=== PATIENT | male | born 1955 | race Caucasian/White ===

== ENCOUNTER 2018-10-06 06:03 | Inpatient (IN) | payer OTHER ==
[2018-09-28 11:47] VITALS: BMI 30.7
[2018-10-05] MEDS: Lactated Ringer's 1,000 ML IV SCH (23:30)
--- NOTE | 2018-10-06 06:52 | CP.PCM.HP ---
History of Present Illness - History of Present Illness History of Present Illness: PMD: Prinz Lesley Orthopedic: Dr Gomez Chief Complaint: Left hip pain The Patient was seen and examined in the [facility] HPI: 63 years old male with hx of HTN, HLD, left Meniscus tear surgery and Osteoarthritis of the left hip. He comes with painful left hip that has failed conservative treatment of Physical therapy, Intraarticular injections and analgesics. He has decided on surgical management for the left hip Osteoarthrit is. PMH: HTN; HLD; Osteoarthritis of the left Hip and knees; Thalassemia Minor, Abnormal EKG PSH: Bowel surgery as an ; Left knee meniscus tear surgery; Right eye surgery SH: Occasional Alcohol; Never smoked; No illegal drug use; Works as a Registered Nurse; Live with family FH: States: No known family hx Allergies: NKDA Medication: Reviewed Present on Admission - Present on Admission Any Indicators Present on Admission: No History of DVT/PE: No History of Uncontrolled Diabetes: No Urinary Catheter: No Decubitus Ulcer Present: No Review of Systems - Constitutional Constitutional: absent: Chills, Fatigue, Fever, Headache, Lethargy - EENT Eyes: Requires Corrective Lenses. absent: Blurred Vision, Diplopia, Other Visual Disturbances Ears: absent: Ear Discharge, Tinnitus Nose/Mouth/Throat: absent: Epistaxis, Nasal Congestion, Sinus Pain, Sinus Pressure - Cardiovascular Cardiovascular: absent: Chest Pain, Dyspnea, Edema - Respiratory Respiratory: absent: Cough, Dyspnea, Wheezing, Stridor - Gastrointestinal Gastrointestinal: absent: Constipation, Diarrhea, Nausea, Vomiting - Genitourinary Genitourinary: absent: Dysuria, Flank Pain, Urinary Frequency - Musculoskeletal Musculoskeletal: Arthralgias. absent: Back Pain Additional comments: Left hip pains - Integumentary Integumentary: absent: Pruritus, Rash, Skin Ulcer, Sores, Striae, Swelling - Neurological Neurological: absent: Confusion, Focal Weakness, Syncope, Tingling, Weakness - Psychiatric Psychiatric: absent: Anxiety, Depression, Panic Attacks - Endocrine Endocrine: absent: Palpitations, Polydipsia, Polyphagia, Polyuria - Hematologic/Lymphatic Hematologic: absent: Easy Bleeding, Easy Bruising Past Patient History - Past Medical History & Family History Past Medical History?: Yes - Past Social History Smoking Status: Never Smoked Chewing Tobacco Use: No Cigar Use: No Alcohol: Occasional Drugs: Denies, Inhalants Home Situation {Lives}: With Family - CARDIAC Hx Cardiac Disorders: Yes Hx Hypercholesterolemia: Yes Hx Hypertension: Yes - PULMONARY Hx Respiratory Disorders: No - NEUROLOGICAL Hx Neurological Disorder: No - HEENT Hx HEENT Problems: No - RENAL Hx Chronic Kidney Disease: No - ENDOCRINE/METABOLIC Hx Endocrine Disorders: No - HEMATOLOGICAL/ONCOLOGICAL Hx Blood Disorders: Yes Other/Comment: Thalassemia - INTEGUMENTARY Hx Dermatological Problems: No - MUSCULOSKELETAL/RHEUMATOLOGICAL Hx Musculoskeletal Disorders: Yes Hx Osteoarthritis: Yes (hips,knees) - GASTROINTESTINAL Hx Gastrointestinal Disorders: No - GENITOURINARY/GYNECOLOGICAL Hx Genitourinary Disorders: No - PSYCHIATRIC Hx Psychophysiologic Disorder: No - SURGICAL HISTORY Hx Surgeries: Yes Hx Arthroscopy: Yes (left knee meniscus -2016) Other/Comment: bowel surgery--child - ANESTHESIA Hx Anesthesia: Yes Hx Anesthesia Reactions: Yes (nausea) Meds Allergies/Adverse Reactions: Allergies Allergy/AdvReac Type Severity Reaction Status Date / Time No Known Allergies Allergy Verified 10/06/18 07:29 Physical Exam - Constitutional Appears: No Acute Distress - Head Exam Head Exam: ATRAUMATIC, NORMAL INSPECTION, NORMOCEPHALIC - Eye Exam Eye Exam: EOMI, Normal appearance Pupil Exam: NORMAL ACCOMODATION, PERRL - ENT Exam ENT Exam: Mucous Membranes Moist, Normal Exam - Neck Exam Neck exam: Positive for: Full Rom, Normal Inspection - Respiratory Exam Respiratory Exam: Clear to Auscultation Bilateral. absent: Rales, Rhonchi, Wheezes - Cardiovascular Exam Cardiovascular Exam: REGULAR RHYTHM, RRR, +S1, +S2. absent: Gallop - GI/Abdominal Exam GI & Abdominal Exam: Normal Bowel Sounds, Soft. absent: Mass, Organomegaly, Tenderness - Rectal Exam Rectal Exam: Deferred - Extremities Exam Extremities exam: Positive for: full ROM, normal inspection - Back Exam Back exam: NORMAL INSPECTION. absent: CVA tenderness (L), CVA tenderness (R) - Neurological Exam Neurological exam: Alert, CN II-XII Intact, Oriented x3, Reflexes Normal - Psychiatric Exam Psychiatric exam: Normal Affect, Normal Mood - Skin Skin Exam: Intact, Normal Color, Warm Assessment & Plan - Assessment and Plan (Free Text) Plan: 63 years old male with hx of HTN, HLD, left Meniscus tear surgery and Osteoarthritis of the left hip. He comes with painful left hip that has failed conservative treatment of Physical therapy, Intraarticular injections and analgesics. He has decided on surgical management for the left hip Osteoarthritis. #. Osteoarthritis of the left hip - Consult Dr Gomez orthopedist - Orthopedic management - Pain management - OT/PT #. HTN - Restart after surgery: Losartan 50mg PO daily Amlodapine 5mg PO Daily #. HLD - Lipitor 10mg Post surgery #. DVT Prophylaxis with SCD Anticoagulation therapy starting day after surgery #. Code Status: Full Sridhar Ng MD - Date & Time Date: 10/06/18 Time: 06:52
[2018-10-06] MEDS ORDERED: Lactated Ringer's 1,000 ML IV ONE ×3 (07:00→10:30)
--- NOTE | 2018-10-06 07:11 | CP.PCM.CON ---
History of Present Illness - History of Present Illness History of Present Illness: Orthopedic consultation Dr. Gomez 63M complains of right hip pain failed conservative mgmt and elected for THR. Patient with leg length discrepancy and uses orthotic and heel lift. PMH: HTN, chol, thal minor patient had cardiac cath in 2007 due to abnormal EKG, no CAD no history of DVT, stents, seizure disorder PSH: knee arthroscopy NKDA Review of Systems - Review of Systems All systems: reviewed and no additional remarkable complaints except - Musculoskeletal Musculoskeletal: As Per HPI Past Patient History - Past Medical History & Family History Past Medical History?: Yes Past Family History: Reviewed and not pertinent - Past Social History Smoking Status: Never Smoked - CARDIAC Hx Cardiac Disorders: Yes Hx Hypertension: Yes - PULMONARY Hx Respiratory Disorders: No - NEUROLOGICAL Hx Neurological Disorder: No - HEENT Hx HEENT Problems: No - RENAL Hx Chronic Kidney Disease: No - ENDOCRINE/METABOLIC Hx Endocrine Disorders: No - HEMATOLOGICAL/ONCOLOGICAL Hx Blood Disorders: Yes Other/Comment: thalassemia minor - INTEGUMENTARY Hx Dermatological Problems: No - MUSCULOSKELETAL/RHEUMATOLOGICAL Hx Musculoskeletal Disorders: Yes Hx Osteoarthritis: Yes (hips,knees) - GASTROINTESTINAL Hx Gastrointestinal Disorders: No - GENITOURINARY/GYNECOLOGICAL Hx Genitourinary Disorders: No - PSYCHIATRIC Hx Psychophysiologic Disorder: No - SURGICAL HISTORY Hx Surgeries: Yes Hx Arthroscopy: Yes (left knee meniscus -2016) Other/Comment: bowel surgery--child - ANESTHESIA Hx Anesthesia: Yes Hx Anesthesia Reactions: Yes (nausea) Meds Allergies/Adverse Reactions: Allergies Allergy/AdvReac Type Severity Reaction Status Date / Time No Known Allergies Allergy Verified 09/28/18 11:47 Physical Exam - Neck Exam Neck exam: Positive for: Full Rom, Normal Inspection - Expanded Lower Extremities Exam Right Ankle exam: FULL ROM, NORMAL INSPECTION Neuro vacular tendon exam: no vascular compromise (1in leg length discrepancy) - Neurological Exam Neurological exam: Alert, Oriented x3 - Psychiatric Exam Psychiatric exam: Normal Affect, Normal Mood - Skin Skin Exam: Dry, Intact, Normal Color, Warm Assessment & Plan - Assessment and Plan (Free Text) Assessment: R hip DJD NPO T&C for OR medical clearance on chart, reviewed
[2018-10-06] MEDS ORDERED: EPINEPHrine 1 mg/ml (1:1000) Inj ONE (07:15)
[2018-10-06] MEDS ORDERED: Bacitracin Ointment 30 GM TUBE ONE (07:15)
[2018-10-06] MEDS ORDERED: Tranexamic Acid 1,000 MG in Sodium Chloride 0.9% 100 ML IVPB SCH (07:15)
[2018-10-06] MEDS ORDERED: ceFAZolin IV 1 gm in Dextrose 2 GM/100 ML BAG IVPB ONE (07:15)
[2018-10-06] MEDS ORDERED: Thrombin Topical 5,000 Int Units Spray Kit ONE (07:16)
[2018-10-06] MEDS ORDERED: Bisacodyl 5mg EC Tab PO PRN (07:25)
[2018-10-06] MEDS ORDERED: Sodium Chloride 0.9% 1,000 ML IV SCH (07:30)
[2018-10-06] MEDS ORDERED: Rocuronium 10 mg/ml (5 ml) ONE ×2 (07:30→09:04)
[2018-10-06] MEDS ORDERED: Propofol 10 mg/ml Inj (20 ML) ONE (07:30)
[2018-10-06] MEDS ORDERED: Midazolam 2 MG/2 ML VIAL ONE (07:30)
[2018-10-06] MEDS ORDERED: Morphine 1 mg/ml preservative-free Inj(Duramorph) ONE (07:30)
[2018-10-06] MEDS ORDERED: Etomidate 20 mg/10ml Inj IV ONE (07:31)
[2018-10-06] MEDS ORDERED: Succinylcholine 200 mg/10 ml Inj IV ONE (07:31)
[2018-10-06] MEDS ORDERED: Phenylephrine 10 mg/ml Inj ONE (07:31)
[2018-10-06 07:37] LABS: BASO % 0.9 % (0.0-2.0); EOS # 0.1 K/uL (0.0-0.7); EOS % 2.6 % (0.0-4.0); LYMPH # 1.3 K/uL (1.0-4.3); LYMPH % 24.3 % (20.0-40.0); MEAN CELL VOLUME 89.8 fl (80.0-94.0); MEAN CORPUSCULAR HEMOGLOBIN 29.7 pg (27.0-31.0); MEAN CORPUSCULAR HGB CONC 33.1 g/dL (33.0-37.0); MEAN PLATELET VOLUME 9.2 fl (7.2-11.7); MONO # 0.5 K/uL (0.0-0.8); MONO % 8.6 % (0.0-10.0); NEUT # 3.5 K/uL (1.8-7.0); NEUT % 63.6 % (50.0-75.0); NRBC % 0.1 % (0.0-0.0); RBC 4.72 Mil/uL (4.40-5.90); RED CELL DISTRIBUTION WIDTH 13.5 % (11.5-14.5); WHITE BLOOD COUNT 5.5 K/uL (4.8-10.8)
[2018-10-06] MEDS ORDERED: Trimethobenzamide 200 mg/2 mL Inj IM ONE (07:51)
[2018-10-06] MEDS ORDERED: Sodium Chloride 0.9% 500 ML IV ONE (08:05)
[2018-10-06] MEDS ORDERED: Thrombin Topical 5,000 Int Units Spray Kit TOP ONE (09:10)
[2018-10-06] MEDS ORDERED: Sevoflurane - Inhalation Anesthetic Liq (250 ml) ONE (09:16)
[2018-10-06] MEDS ORDERED: Neostigmine 1:1000 (1 mg/ml) Inj ONE (11:36)
[2018-10-06] MEDS ORDERED: HYDROmorphone 0.5 mg/0.5 ml ISec IVP PRN (12:19)
--- NOTE | 2018-10-06 13:13 | PCM.SURG1 ---
Surgeon's Initial Post Op Note - Surgeon's Notes Surgeon: Jason Wood Heel Fitter Machine: VIANEY Peraza/ Alison Membreno PA-C Type of Anesthesia: General Endo, Spinal Anesthesia Administered By: DR Russell Pre-Operative Diagnosis: Sever o/A L HIp. Leg length inequality R<L Operative Findings: sever hypertrophic O/ A L hip. synovits L nhip0. Leg length inequality R<L Post-Operative Diagnosis: same Operation Performed: L THR. femoral; neck [id number]. arthrotomy/synovectomy. release iliopsoas tendon. autograFTE BONE GRAFT. [employer] Specimen/Specimens Removed: bone / cartilage / bone Estimated Blood Loss: EBL {In ML}: 175 Blood Products Given: N/A Drains Used: No Drains Post-Op Condition: Fair Date of Surgery/Procedure: 10/06/18 Time of Surgery/Procedure: 09:05 (time in room 8:03)
--- NOTE | 2018-10-06 13:59 | RAD ---
PROCEDURE: Left Hip X-ray Radiographs. HISTORY: s/p left hip arhtroplasty COMPARISON: None. FINDINGS: BONES: Satisfactory appearance of components of left OLGA LIDIA. JOINTS: Degenerative changes right hip are moderate-severe. SOFT TISSUES: Normal. OTHER FINDINGS: None. IMPRESSION: Satisfactory postoperative status.
--- NOTE | 2018-10-06 14:03 | RAD ---
Date of service: 10/06/2018 PROCEDURE: Fluoroscopic assistance in excess of 1 hour. HISTORY: LEFT HIP COMPARISON: None TECHNIQUE: Standard protocol for this study/examination. FINDINGS: Total fluoroscopic time (continuous mode) utilized during the procedure 6.4 seconds. Total exam DLP: 0.88 (mGy). IMPRESSION: Submitted images from the current procedure: 4.0
[2018-10-06] MEDS: Lactated Ringer's 1,000 ML IV SCH ×2 (15:28→15:45)
[2018-10-06] MEDS ORDERED: oxyCODONE 5 mg Immediate Release Tab PO PRN (16:26)
[2018-10-06] MEDS: ceFAZolin IV 2 gm in Dextrose 2 GM/50 ML BAG IVPB SCH (17:03)
[2018-10-07] MEDS: ceFAZolin IV 2 gm in Dextrose 2 GM/50 ML BAG IVPB SCH (00:34)
[2018-10-07] MEDS: oxyCODONE 10 mg Immediate Release Tab PO PRN (03:08)
[2018-10-07 06:23] LABS: HEMOGLOBIN 10.9 g/dL (12.0-18.0); MEAN CELL VOLUME 87.5 fl (80.0-94.0); MEAN CORPUSCULAR HEMOGLOBIN 29.8 pg (27.0-31.0); MEAN CORPUSCULAR HGB CONC 34.1 g/dL (33.0-37.0); RBC 3.67 Mil/uL (4.40-5.90); RED CELL DISTRIBUTION WIDTH 13.4 % (11.5-14.5); WHITE BLOOD COUNT 9.7 K/uL (4.8-10.8)
[2018-10-07 06:41] LABS: BLOOD UREA NITROGEN 26 mg/dl (9-20); CALCIUM 8.5 mg/dL (8.4-10.2); GFR NON-AFRICAN AMERICAN > 60
--- NOTE | 2018-10-07 08:09 | CP.PCM.PN ---
Subjective - Date & Time of Evaluation Date of Evaluation: 10/07/18 Time of Evaluation: 08:08 - Subjective Subjective: Patient seen and examined at bedside with Dr. Gomez. Pain is well controlled and minimal this AM. Complaints of urinary retention overnight which is improving, able to void small amounts this AM. Has not seen PT as of yet. Denies CP/SOB/N/V/fever. Objective - Vital Signs/Intake and Output Vital Signs (last 24 hours): Temp Pulse Resp BP Pulse Ox 97.8 F 95 H 19 127/78 98 10/07/18 07:57 10/07/18 07:57 10/07/18 07:57 10/07/18 07:57 10/07/18 07:57 Intake and Output: 10/07/18 10/07/18 06:59 18:59 Output Total 475 Balance -475 - Medications Medications: Current Medications Bisacodyl (Dulcolax) 10 mg PO HS PRN PRN Reason: Constipation Docusate Sodium (Colace) 100 mg PO BID [facility] Last Admin: 10/06/18 17:03 Dose: 100 mg Enoxaparin Sodium (Lovenox) 40 mg SC DAILY [facility]; Protocol Hydromorphone HCl (Dilaudid) 1 mg IVP Q4 PRN PRN Reason: Pain, severe (8-10) Last Admin: 10/07/18 00:22 Dose: 1 mg Lactated Ringer's (Lactated Ringer's) 1,000 mls @ 100 mls/hr IV .Q10H [facility] Last Admin: 10/06/18 15:45 Dose: 50 mls Acetaminophen (Ofirmev) 100 mls @ 400 mls/hr IVPB Q6H [facility]; Protocol Stop: 10/08/18 07:01 Ondansetron HCl (Zofran Inj) 4 mg IVP Q6 PRN PRN Reason: Nausea/Vomiting Oxycodone HCl (Oxycodone Immediate Release Tab) 5 mg PO Q4 PRN PRN Reason: Pain, Mild (1-3) Oxycodone HCl (Oxycodone Immediate Release Tab) 10 mg PO Q4 PRN PRN Reason: Pain, moderate (4-7) Last Admin: 10/07/18 03:08 Dose: 10 mg - Labs Labs: 10/07/18 05:45 10/07/18 05:45 - Extremities Exam Additional comments: L hip: Dressings CDI mild swelling sensation intact SP/DP/TN motor intact EHL/FHL/TA/G DP/PT pulses intact calves soft NT Assessment and Plan (1) Osteoarthritis of left hip Assessment & Plan: POD#1 s/p L OLGA LIDIA -pain control obtained -PT/OT FWB -Encourage OOB for urinary retention, avoid webber -DVT ppx -orthopedically stable for discharge tonight vs tomorrow AM to home -f/u in office this Wednesday 10/10, keep dressings clean and dry -above d/w Dr. Gomez in agreement Status: Acute
[2018-10-07] MEDS: Enoxaparin 40 mg Syringe SC SCH ×2 (08:24→12:32)
[2018-10-07] MEDS: Lactated Ringer's 1,000 ML IV SCH (08:25)
--- NOTE | 2018-10-07 11:11 | CP.PCM.PN ---
Subjective - Date & Time of Evaluation Date of Evaluation: 10/07/18 Time of Evaluation: 11:08 - Subjective Subjective: 63M seen and evaluated at bedside POD 1 left hip surgery. Resting comfortably. Denies pain to surgical site. States he was visited by PT this morning and that he had no trouble participating. States he had trouble urinating overnight but denies dysuria or pain with urination today and states he is able to void freely. Denies all other constitutional symptoms and has no other acute complaints. Objective - Vital Signs/Intake and Output Vital Signs (last 24 hours): Temp Pulse Resp BP Pulse Ox 97.8 F 95 H 19 127/78 98 10/07/18 07:57 10/07/18 07:57 10/07/18 07:57 10/07/18 07:57 10/07/18 07:57 Intake and Output: 10/07/18 10/07/18 06:59 18:59 Output Total 475 Balance -475 - Medications Medications: Current Medications Bisacodyl (Dulcolax) 10 mg PO HS PRN PRN Reason: Constipation Docusate Sodium (Colace) 100 mg PO BID [facility] Last Admin: 10/07/18 08:24 Dose: 100 mg Enoxaparin Sodium (Lovenox) 40 mg SC DAILY [facility]; Protocol Hydromorphone HCl (Dilaudid) 1 mg IVP Q4 PRN PRN Reason: Pain, severe (8-10) Last Admin: 10/07/18 00:22 Dose: 1 mg Lactated Ringer's (Lactated Ringer's) 1,000 mls @ 100 mls/hr IV .Q10H [facility] Last Admin: 10/07/18 08:25 Dose: 100 mls/hr Acetaminophen (Ofirmev) 100 mls @ 400 mls/hr IVPB Q6H [facility]; Protocol Stop: 10/08/18 07:01 Last Admin: 10/07/18 08:24 Dose: 400 mls/hr Ondansetron HCl (Zofran Inj) 4 mg IVP Q6 PRN PRN Reason: Nausea/Vomiting Oxycodone HCl (Oxycodone Immediate Release Tab) 5 mg PO Q4 PRN PRN Reason: Pain, Mild (1-3) Oxycodone HCl (Oxycodone Immediate Release Tab) 10 mg PO Q4 PRN PRN Reason: Pain, moderate (4-7) Last Admin: 10/07/18 03:08 Dose: 10 mg - Labs Labs: 10/07/18 05:45 10/07/18 05:45 - Constitutional Appears: Well, Non-toxic, No Acute Distress - Head Exam Head Exam: ATRAUMATIC, NORMAL INSPECTION, NORMOCEPHALIC - Eye Exam Eye Exam: EOMI, Normal appearance, PERRL - ENT Exam ENT Exam: Mucous Membranes Moist - Neck Exam Neck Exam: Full ROM - Respiratory Exam Respiratory Exam: Clear to Ausculation Bilateral, NORMAL BREATHING PATTERN - Cardiovascular Exam Cardiovascular Exam: REGULAR RHYTHM, RRR, +S1, +S2. absent: Gallop - GI/Abdominal Exam GI & Abdominal Exam: Soft, Normal Bowel Sounds. absent: Tenderness - Extremities Exam Extremities Exam: Normal Capillary Refill Additional comments: L hip: Dressings CDI mild swelling sensation intact SP/DP/TN motor intact EHL/FHL/TA/G DP/PT pulses intact calves soft NT - Neurological Exam Neurological Exam: Alert, Awake, Oriented x3 - Psychiatric Exam Psychiatric exam: Normal Affect, Normal Mood - Skin Skin Exam: Normal Color, Warm Assessment and Plan - Assessment and Plan (Free Text) Assessment: 63 years old male with hx of HTN, HLD, left Meniscus tear surgery and Osteoarthritis of the left hip POD 1 L total hip replacement Plan: #. Osteoarthritis of the left hip - Consult Dr Gomez orthopedist - Orthopedic management - Pain management - OT/PT - continue incentive spirometry #. urinary retention - improved, able to void freely without pain or discomfort - straight cath overnight, refused webber #. acute blood loss anemia - monitor labs - 10.32.1 - type and screen/type and cross performed #. HTN - hypotensive today, will not continue home meds until stable - home meds: Losartan 50mg PO daily, Amlodapine 5mg PO Daily #. HLD - Lipitor 10mg Post surgery #. DVT Prophylaxis with SCD #. Code Status: Full
--- NOTE | 2018-10-07 11:47 | CP.PCM.DIS ---
Provider - Provider Date of Admission: 10/06/18 07:25 Attending physician: Sridhar Ng Consults: 10/06/18 06:56 Orthopedic Consult Routine Comment: Consulting Provider: Graham Gomez III Consulting Physician: Garham Gomez III Reason for Consult: Left THR 10/06/18 07:25 Case Management Referral Routine Comment: Physician Instructions: Reason For Exam: request TCU Reason for Referral: Discharge Planning Time Spent in preparation of Discharge (in minutes): 30 Diagnosis - Discharge Diagnosis (1) Osteoarthritis of left hip Status: Acute (2) Acute blood loss anemia Status: Acute (3) Urinary retention Status: Acute Hospital Course - Lab Results Lab Results: Most Recent Lab Values WBC 9.7 K/uL (4.8-10.8) D 10/07/18 05:45 RBC 3.67 Mil/uL (4.40-5.90) L 10/07/18 05:45 Hgb 10.9 g/dL (12.0-18.0) L D 10/07/18 05:45 Hct 32.1 % (35.0-51.0) L 10/07/18 05:45 MCV 87.5 fl (80.0-94.0) D 10/07/18 05:45 MCH 29.8 pg (27.0-31.0) 10/07/18 05:45 MCHC 34.1 g/dL (33.0-37.0) 10/07/18 05:45 RDW 13.4 % (11.5-14.5) 10/07/18 05:45 Plt Count 167 K/uL (130-400) 10/07/18 05:45 MPV 9.2 fl (7.2-11.7) 10/06/18 07:10 Neut % (Auto) 63.6 % (50.0-75.0) 10/06/18 07:10 Lymph % (Auto) 24.3 % (20.0-40.0) 10/06/18 07:10 [place] % (Auto) 8.6 % (0.0-10.0) 10/06/18 07:10 Eos % (Auto) 2.6 % (0.0-4.0) 10/06/18 07:10 Baso % (Auto) 0.9 % (0.0-2.0) 10/06/18 07:10 Neut # (Auto) 3.5 K/uL (1.8-7.0) 10/06/18 07:10 Lymph # (Auto) 1.3 K/uL (1.0-4.3) 10/06/18 07:10 [place] # (Auto) 0.5 K/uL (0.0-0.8) 10/06/18 07:10 Eos # (Auto) 0.1 K/uL (0.0-0.7) 10/06/18 07:10 Baso # (Auto) 0.0 K/uL (0.0-0.2) 10/06/18 07:10 Sodium 133 mmol/l (132-148) 10/07/18 05:45 Potassium 4.6 MMOL/L (3.6-5.0) 10/07/18 05:45 Chloride 100 mmol/L (98-107) 10/07/18 05:45 Carbon Dioxide 23 mmol/L (22-30) 10/07/18 05:45 Anion Gap 15 (10-20) 10/07/18 05:45 BUN 26 mg/dl (9-20) H 10/07/18 05:45 Creatinine 1.1 mg/dl (0.8-1.5) 10/07/18 05:45 Est GFR ( Amer) > 60 10/07/18 05:45 Est GFR (Non-Af Amer) > 60 10/07/18 05:45 Random Glucose 121 mg/dL (75-110) H 10/07/18 05:45 Calcium 8.5 mg/dL (8.4-10.2) 10/07/18 05:45 Blood Type B POSITIVE 10/06/18 07:10 Blood Type Confirm B POSITIVE 10/06/18 08:18 Antibody Screen Negative 10/06/18 07:10 Crossmatch See Detail 10/06/18 07:10 BBK History Checked No verified bt 10/06/18 07:10 - Hospital Course Hospital Course: 63 years old male with hx of HTN, HLD, left Meniscus tear surgery and Osteoarthritis of the left hip POD 1 L total hip replacement. While in house Dr. Gomez was on consult and imaging was taken pre and post operatively of left hip revealing satisfactory status. Patient experienced urinary retention overnight, was straight catheterized, refused webber, and was able to void freely without discomfort or pain in the AM. Patient also experienced acute blood loss anemia after surgery and was type and screen/type and crossed but is asymptomatic and stable. Patient was seen by PT while in house who recommended d/c home with outpatient f/u for PT. Patient's home medications for HTN were not restarted while in house as he was hypotensive but is also asymptomatic and can resume upon d/c home. Patient given prescription for pain medication to fill up on d/c. Patient will f/u with Dr. Gomez at office in 1 week. - Date & Time of H&P Date of H&P: 10/07/18 Time of H&P: 11:47 Discharge Exam - Head Exam Head Exam: ATRAUMATIC, NORMAL INSPECTION, NORMOCEPHALIC - Eye Exam Eye Exam: EOMI, Normal appearance, PERRL - ENT Exam ENT Exam: Mucous Membranes Moist - Neck Exam Neck exam: Full Rom, Normal Inspection - Respiratory Exam Respiratory Exam: Clear to PA & Lateral, NORMAL BREATHING PATTERN - Cardiovascular Exam Cardiovascular Exam: REGULAR RHYTHM, +S1, +S2 - GI/Abdominal Exam GI & Abdominal Exam: Normal Bowel Sounds, Soft. absent: Tenderness - Extremities Exam Extremities exam: normal capillary refill, pedal pulses present Additional comments: L hip: Dressings CDI mild swelling sensation intact SP/DP/TN motor intact EHL/FHL/TA/G DP/PT pulses intact calves soft NT - Neurological Exam Neurological exam: Alert, Oriented x3 - Psychiatric Exam Psychiatric exam: Normal Affect, Normal Mood - Skin Skin Exam: Normal Color, Warm Discharge Plan - Follow Up Plan Condition: GOOD Disposition: HOME/ ROUTINE Instructions: Osteoarthritis (DC), Total Hip Replacement (DC) Referrals: Graham Gomez III, MD [Staff Provider] - Clinical Quality Measures - Date & Time of Discharge Summary Date of Discharge Summary: 10/07/18 Time of Discharge Summary: 11:47
--- NOTE | 2018-10-07 17:29 | CP.PCM.PCO ---
Addendum Addendum: 10/07/18 17:27 Called to evaluate patient refusing to be DC home due to concerns of low fever earlier today and unresolved nausea. Patient evaluated at bedside, present, they refused Lovenox today and request ASA 325 mg for DVT prophylaxis. 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 Discussed that fever likely due to anesthesia/atelectasis and that not other workup/treatment wis needed at this time. Will increase zofran frequency to Q4h PRN and will give Simethicone 80 mg for gassiness.
[2018-10-07] MEDS: Simethicone 80 mg Chewtab PO SCH (18:39)
[2018-10-07 21:00] LABS: URINE BILIRUBIN NEGATIVE (NEGATIVE); URINE CLARITY CLEAR (Clear); URINE COLOR COLORLESS (YELLOW); URINE GLUCOSE (UA) NEG (NEGATIVE); URINE LEUKOCYTE ESTERASE NEG Leu/uL (Negative); URINE PROTEIN NEGATIVE (NEGATIVE); URINE UROBILINOGEN 0.2-1.0 mg/dL (0.2-1.0)
[2018-10-07 21:05] LABS: URINE BLOOD TRACE (NEGATIVE)
[2018-10-08] MEDS: Simethicone 80 mg Chewtab PO SCH ×2 (01:45→10:47)
[2018-10-08 06:27] VITALS: O2SAT 96
[2018-10-08 09:07] VITALS: BP 117/78; PULSE 112; RESP 20; TEMP 99.5
--- NOTE | 2018-10-08 10:53 | CP.PCM.PN ---
Subjective - Date & Time of Evaluation Date of Evaluation: 10/08/18 Time of Evaluation: 10:25 - Subjective Subjective: S- pt with essentially no pain; encounter is accomplished at bedside-in prescence of Rosa, nurse professional and significant other Objective - Vital Signs/Intake and Output Vital Signs (last 24 hours): Temp Pulse Resp BP Pulse Ox 99.5 F 112 H 20 117/78 96 10/08/18 09:07 10/08/18 09:07 10/08/18 09:07 10/08/18 09:07 10/08/18 09:07 Intake and Output: 10/08/18 10/08/18 06:59 18:59 Intake Total 400 Output Total 3900 Balance -3500 - Medications Medications: Current Medications Aspirin (Aspirin) 325 mg PO DAILY [facility] Last Admin: 10/07/18 19:53 Dose: 325 mg Bisacodyl (Dulcolax) 10 mg PO HS PRN PRN Reason: Constipation Docusate Sodium (Colace) 100 mg PO BID [facility] Last Admin: 10/08/18 10:34 Dose: 100 mg Hydromorphone HCl (Dilaudid) 1 mg IVP Q4 PRN PRN Reason: Pain, severe (8-10) Last Admin: 10/07/18 00:22 Dose: 1 mg Lactated Ringer's (Lactated Ringer's) 1,000 mls @ 100 mls/hr IV .Q10H [facility] Last Admin: 10/07/18 08:25 Dose: 100 mls/hr Ondansetron HCl (Zofran Inj) 4 mg IVP Q4 PRN PRN Reason: Nausea/Vomiting Oxycodone HCl (Oxycodone Immediate Release Tab) 5 mg PO Q4 PRN PRN Reason: Pain, Mild (1-3) Oxycodone HCl (Oxycodone Immediate Release Tab) 10 mg PO Q4 PRN PRN Reason: Pain, moderate (4-7) Last Admin: 10/07/18 03:08 Dose: 10 mg Simethicone (Mylicon Chew Tab) 80 mg PO Q8 [facility] Last Admin: 10/08/18 01:45 Dose: 80 mg Tamsulosin HCl (Flomax) 0.4 mg PO DAILY [facility] Last Admin: 10/08/18 10:33 Dose: 0.4 mg - Labs Labs: 10/07/18 05:45 10/07/18 05:45 - Additional Findings Additional findings: Obj systemic- wnl o chest opain/shortness of breath pt has NOT yet urinated Musculoskekltal stance/gait- defrred L hip wound dry and intact N/V intact no gross deficits leg length inequality improved; post op xrays reveal that LLD is secondary to tibial inequality and L/S spine pt had 1"" disxrepancy made up by packaging clerk insert (probably too much) Xray- reveals excellent position of construct; no significant LLD when measure from infraischila line excelelnt positon of total hip construct Assessment and Plan - Assessment and Plan (Free Text) Assessment: A- successful L [facility]' n o evidence for thromboembolic disease P_ full weight bearing orthop[edically stable for d/c afetr pt voids thromboembolic prophylaxis- ASA 81 mg po BID- options for thromboembolic prophylaxid discussed with Rosa pts - orthopedically stable- she wishes, and Jeffery to use the ASA porotcol
[2018-10-08] MEDS: oxyCODONE 10 mg Immediate Release Tab PO PRN (12:46)
--- NOTE | 2018-10-10 06:31 | OP ---
PROCEDURE DATE: 10/06/2018 PREOPERATIVE DIAGNOSES: 1. Severe hypertrophic osteoarthritis of the left hip. 2. Leg length inequality, right worse than left, approximately 1 to 1.25 inches. POSTOPERATIVE DIAGNOSES: 1. Severe hypertrophic osteoarthritis of the left hip. 2. Leg length inequality, right worse than left, approximately 1 to 1.25 inches. PROCEDURES PERFORMED: 1. Left total hip replacement arthroplasty, anterior approach. 2. Femoral neck osteotomy. Separate procedure because of the planning required intraoperatively and preoperatively regarding the leg length inequality. 3. Release of the iliopsoas tendon. 4. Autograft bone graft to both the femur and the acetabulum. 5. Computer navigation. SURGEON: Graham Gomez MD DATA SCIENCES DIRECTOR: Gil Case PA-C SECOND ULTRASOUND SPEC: CHRISTEL Isidro ANESTHESIA: Spinal and general. ANESTHESIOLOGIST: Yuan Bridges MD COMPLICATIONS: None. DRAINS: None. BLOOD LOSS: Approximately 175 mL. 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 The patient presents with severe pain and restricted range of motion for a long period of time. The patient has been treated conservatively for bilateral osteoarthritis of the knees by Dr. Jensen Montgomery and presents with severe pain and restricted range of motion of the left hip. The patient has marked discomfort, pain and restricted range of motion. The patient failed conservative management consisting of orthotic use which was introduced by Podiatry at least 4 to 5 years of physical therapy. The patient can no longer stand the discomfort. Pros, cons, risks and benefits of hip replacement arthroplasty, discussed the possibility of mechanical failure, infection, thromboembolic disease, possibility of secondary or tertiary surgery was discussed. The patient can no longer stand the discomfort and wished the surgery to be accomplished. Preoperative consultation and consent was obtained from the patient and his significant other who is a culinary instructor for [employer]. The problem of leg length is significant. The leg length it is explained cannot be a handmade instability of the hip. The function of the hip replacement is for stable painless range of range of motion, leg length equality is secondary. In this case, the patient had a scanogram. The patient has leg lengths which are affected by pelvic obliquity in spine and the leg length inequality in the tibia. The majority of leg length inequality is not from the femur. It was explained that leg length inequality may have to be accepted and since there is severe osteoarthritis of the right hip as well, when the right hip is done the attempt will be made for normalization. This was discussed specifically at length with both the patient and his significant other, Rosa Hoskins. The patient is aware that leg length equality in all probability will not happen after this operation and there is no guarantee after the second operation that this will occur. DESCRIPTION OF PROCEDURE: After having obtained informed consent in the above fashion, after having identified side, site and procedure and a critical pause/time-out after the satisfactory induction of the anesthetic, the patient identified as Jeffery Candelario, is placed in the [facility] traction positioner. The left lower extremity is placed in the traction positioner. Under the surgeon's direction, the fluoroscope was positioned, video images were generated and therapeutic decisions were made therefrom. After the satisfactory induction of spinal and general anesthesia by Dr. Bridges after having identified side, site and procedure and critical pause/time-out, after the satisfactory induction of the anesthetic, the patient identified as Jeffery Candelario, left lower extremity was prepped and free draped in usual fashion for a total hip replacement surgery, anterior approach. The topographic anatomy was marked on the anterior superior iliac spine, the greater trochanter. A point three fingerbreadths posteriorly, 3.5 cm posterior to the anterior superior iliac spine, and 1 to 1.5 cm distal to the ASIS, the incision was described obliquely superficial to the tensor fascia femoris muscle. This having been accomplished, again after having identified side, site and procedure and critical pause/time-out, skin incision was carried down through the skin and subcutaneous tissue. The fascia was divided. The fascia was grasped with an Allis clamp. The tensor fascia femoris was taken down from the investing fascia. The modified Yaakov-Franchesca Medacta retractor was placed exposing the rectus femoris and the posterior border. At this point in time, the posterior border of the rectus femoris was identified. The Aquamantys was used to control the lateral femoral circumflex vessels. particularly the anterior branch of the lateral femoral circumflex vessel. The retractor was placed deeper in the horizontal area and the fascia was carefully divided. Again, hemostasis was controlled. The lateral femoral circumflex vessels were controlled and the incision was accomplished from the border of the acetabulum, extending laterally, which was exposed using a Cobra retractor to protect gluteus minimus. This was exposed and brought with the lower extremity in neutral letting internal rotation to the lateral border of the acetabulum medially to the area of the intertrochanteric line and then that flap was elevated. Great care was taken to elevate that flap. The flap was released as well using the electrocautery. Hemostasis controlled with the Aquamantys. Again, great deal of preoperative planning had been accomplished as well as intraoperative planning and a very low femoral neck osteotomy was accomplished. The femoral neck osteotomy was a separate coded procedure because of the difficulty in preoperative and intraoperative planning. Using the oscillating saw, femoral neck osteotomy was accomplished. Medacta Hohmann retractor was placed in the saddle area after the hip joint had been packed with a Ray-Alysha sponge. Femoral neck osteotomy having been completed, the Ray-Alysha was removed. The femur was rotated externally to 45 degrees with two turns of traction. There was found to be a great deal of capsular contracture. The corkscrew was placed into the femoral head and the capsular attachments were released and the femoral head was released. This having been accomplished, attention was now turned to the anterior superior iliac spine and the computer navigation commences. Two stab wounds using #11 blade were accomplished. The modified Steinmann pins were placed into the anterior superior iliac spine to support the accelerometer optical camera. The computer navigation is optically accelerometer-controlled and this having been accomplished, the anterior superior iliac spine on the left and on the right are registered. Registration of the pelvis thus occurs. This having been accomplished and after registration, attention was turned to the acetabulum. The Charnley retractor was placed deep into the capsule and the reflected head of rectus femoris was elevated and the Medacta retractors were placed superiorly and anteriorly. Osteophytes were debrided using 0.5-inch curved osteotome, pulvinar was excised. Hemostasis controlled with the Aquamantys. Sequential reaming was carried out and since there was a definite bony ridge in the area of the cotyloid notch and in the area of the horseshoe, the so-called horseshoe, reaming commences for 46 mm medially and then approximately 40 to 45 degrees of abduction and 15 to 20 degrees of anteversion. Reaming commences, the reaming was denuded of articular cartilage and used for later autograft and bone grafting. Reaming was carried out to 52 mm. The 52-mm trial was impacted and found to be acceptable. At this point in time, after introduction of the cup was accomplished, computer navigation was employed and the reading was approximately 42 to 44 degrees and 18 to 20 degrees of anteversion which is acceptable. This having been accomplished, further reaming was accomplished in that attitude with approximately 40 to 45 degrees of abduction and 15 to 20 degrees of anteversion. Autograft and bone grafting from the reaming was used to pack the acetabulum. The Medacta 52-mm cup was impacted in the appropriate anteversion, anteversion approximately 42 degrees with 18 degrees of anteversion. The cup was found to be stable. Pelvic lift test was negative. The cup was stable. The cup having been impacted, attention was now turned to the femur with external rotation of the femur. The pubofemoral ligament was carefully released. Great care was taken to accompany the releases with hemostasis from the Aquamantys. The computer navigation again had been accomplished in positioning the acetabulum. At this point in time, the wire was removed. The camera was removed. Attention was turned to the femur. The trochanteric fossa was entered. Great care was taken to preserve the piriformis and the remainder of the tendon release was accomplished as well as the iliofemoral ligament. Iliofemoral ligament having been accomplished, at this point in time, the femur was mobilized with the bone hook. Mobilization having been accomplished, further external rotation is carried out to approximately 165 degrees. This having been accomplished, hyperextension of the femur was accomplished. The Alem retractors were used to expose the femur with adduction of approximately 10 degrees of the femur with hyperextension, the bridge of bone between the neck and the trochanter was removed. Using the bur, the canal was entered. This was followed with the rasp. Great care was taken not to violate the envelope of the femur. The rasp having been entered, sequential broaching was carried out to a #3 broach because of the leg length inequality. A -3.5 head was placed on the standard neck with the 52 mm dual mobility outer bearing polyethylene 28 mm head. This construct was reduced, found to be stable. Verification of position was offered on image intensification views. It should be noted that the iliopsoas tendon was released because of the amount of contracture. This having been accomplished, the hip was dislocated after verification of position with image intensification views. This having been accomplished, the #3 Medacta femoral component was impacted with a -3.5 ceramic head with the 52 mm polyethylene outer bearing for the dual mobility construct. The iliopsoas tendon having been released, hemostasis having been controlled, autograft bone grafting was accomplished to the femur as well to accommodate the femoral envelope with a trapezoidal femoral stem. Bone grafting to both the femur and the acetabulum having been accomplished, the dual mobility construct having been applied, the hip was reduced and was found to be stable in all planes. Of course, there was a resultant leg-length inequality as explained to the patient preoperatively, that will be addressed when the contralateral side is operated and in the interim, an orthotic device and shoe will be employed. The wound was thoroughly irrigated. Hemostasis controlled with thrombin and Gelfoam as well as FloSeal hemostatic agent. Aggressive irrigation was accomplished. Closures in layers. A #0 Quill for the fascia on the tensor fascia femoris, followed by interrupted #0 Vicryl and 2-0 Quill plastic closure. Compression dressing was applied as well as Steri-Strips. Again, the verification of position was offered on image intensification views. Compression dressing applied. The patient is transferred from the operating table to the stretcher having tolerated the procedure well with no complications. Postoperative x-rays reveal acceptable position of the construct. Graham Gomez MD
== END 2018-10-08 14:27 | disposition home or self-care (01) | DRG 470 ==
LOC: H.OPSURG 06:03 → H.MEDSURG1 07:25
PROVIDERS: ADMIT Internal Medicine; ATTEND Internal Medicine
PROC: 0SRB04A Replacement of Left Hip Joint with Ceramic on Polyethylene Synthetic Substitute, Uncemented, Open Approach (ICD-10-PCS; principal; 2018-10-06 07:45)
DX: M16.12 Unilateral primary osteoarthritis, left hip (principal); D62 Acute posthemorrhagic anemia; M16.11 Unilateral primary osteoarthritis, right hip; D56.3 Thalassemia minor; E78.00 Pure hypercholesterolemia, unspecified; E78.5 Hyperlipidemia, unspecified; I10 Essential (primary) hypertension; M17.0 Bilateral primary osteoarthritis of knee; M21.70 Unequal limb length (acquired), unspecified site; Z79.82 Long term (current) use of aspirin; R33.9 Retention of urine, unspecified; R50.82 Postprocedural fever

== ENCOUNTER 2019-01-18 06:09 | Inpatient (IN) | payer OTHER ==
[2019-01-18 06:33] VITALS: BMI 33.5
[2019-01-18] MEDS ORDERED: Bacitracin Ointment 30 GM TUBE ONE (07:05)
[2019-01-18] MEDS ORDERED: EPINEPHrine 1 mg/ml (1:1000) Inj ONE ×2 (07:05→11:18)
[2019-01-18] MEDS ORDERED: Absorbable Gelatin Sponge Size 12-7 ONE (07:05)
[2019-01-18] MEDS ORDERED: Thrombin Topical 5,000 Int Units Spray Kit ONE (07:06)
--- NOTE | 2019-01-18 07:11 | CP.PCM.CON ---
History of Present Illness - History of Present Illness History of Present Illness: Orthopedic consult: Dr. Gomez Patient is a 63 y/o male who presents for elective R OLGA LIDIA due to chronic R hip pain for many years. The pain has progressively worsened over the past few months hindering his activities of daily living, such as walking and tieing his shoe. He has tried and failed conservative means with oral medications and PT and has opted for surgical management. He had recently had successful L OLGA LIDIA on 10/06/18with full recovery and no complications. He denies any radiation of pain/numbness/tingling. He denies CP/SOB/N/V/D/fever/melena/dysuria. He denies any cardiac/thromboembolic events. PMH: HTN, HLD PSH: L OLGA LIDIA, L knee arthroscopy, bowel surgery meds: as per med Rec allergy: NKDA SH: ETOH occasionally, denies Tobacco/drug use, works as nurse Review of Systems - Review of Systems All systems: reviewed and no additional remarkable complaints except Review of Systems: as per HPI Past Patient History - Past Medical History & Family History Past Medical History?: Yes Past Family History: Reviewed and not pertinent - Past Social History Smoking Status: Never Smoked - CARDIAC Hx Cardiac Disorders: Yes Hx Hypercholesterolemia: Yes Hx Hypertension: Yes Other/Comment: hx of cardiac cath due to abnormal EKG (-) - PULMONARY Hx Respiratory Disorders: No - NEUROLOGICAL Hx Neurological Disorder: No - HEENT Hx HEENT Problems: No - RENAL Hx Chronic Kidney Disease: No - ENDOCRINE/METABOLIC Hx Endocrine Disorders: No - HEMATOLOGICAL/ONCOLOGICAL Hx Blood Disorders: No Hx Anemia: No Hx Blood Transfusions: No Other/Comment: Thalassemia - INTEGUMENTARY Hx Dermatological Problems: No - MUSCULOSKELETAL/RHEUMATOLOGICAL Hx Musculoskeletal Disorders: No Hx Falls: No Hx Osteoarthritis: Yes (hips,knees) - GASTROINTESTINAL Hx Gastrointestinal Disorders: No - GENITOURINARY/GYNECOLOGICAL Hx Genitourinary Disorders: No - PSYCHIATRIC Hx Emotional Abuse: No Hx Physical Abuse: No - SURGICAL HISTORY Hx Surgeries: Yes Hx Arthroscopy: Yes (left knee meniscus -2015) Other/Comment: LEFT HIP TOTAL [id number] - ANESTHESIA Hx Anesthesia: Yes Hx Anesthesia Reactions: Yes (URINARY RETENTION AFTER SPINAL ANESTHESIA) Hx Malignant Hyperthermia: No Has any member of the family had a problem w/ anesthesia?: No Meds Allergies/Adverse Reactions: Allergies Allergy/AdvReac Type Severity Reaction Status Date / Time No Known Allergies Allergy Verified 01/18/19 06:33 Physical Exam - Constitutional Appears: Well, No Acute Distress - Head Exam Head Exam: ATRAUMATIC, NORMOCEPHALIC - Eye Exam Eye Exam: EOMI, Normal appearance - ENT Exam ENT Exam: Mucous Membranes Moist - Respiratory Exam Respiratory Exam: NORMAL BREATHING PATTERN - Extremities Exam Additional comments: R hip: lateral hip and groin tenderness sensation intact SP/DP/TN motor intact EHL/FHL/TA/G pedal pulse intact Results - Vital Signs Recent Vital Signs: Last Vital Signs Temp 98.7 F 01/18/19 06:43 Pulse 73 01/18/19 06:49 Resp 18 01/18/19 06:43 BP 107/76 01/18/19 06:43 Pulse Ox 97 01/18/19 06:43 - Labs Result Diagrams: 01/18/19 15:22 - Impressions Impression: Xrays reveal R hip joint thinning consistent with OA Assessment & Plan (1) Osteoarthritis of right hip Assessment and Plan: OR today for R OLGA LIDIA as per Dr. Gomez Risks/benefits/alternatives d/w patient and , who understand and agree to proceed with above admit to Hospitalist NPO d/w Dr. Gomez who agrees with above Status: Acute - Date & Time Date: 01/18/19 Time: 07:15
--- NOTE | 2019-01-18 07:13 | CP.PCM.HP ---
History of Present Illness - History of Present Illness History of Present Illness: PMD: Prinz Lesley Orthopedic: Dr Gomez Chief Complaint: Right hip pain The Patient was seen and examined in the SDS Unit HPI: 63-year-old with PMH of HTN, BPH, Hyperlipidemia, hyperglycemia, osteoarthritis of hip, abnormal EKG and obesity (BMI 30-39). Evaluated in SDS and complains of painful left hip that has failed conservative treatment of physical therapy, intra-articular injections and analgesics. He has decided on surgical management for the right hip Osteoarthritis. Had left hip done Sep 2018, complications include nausea refractory to zofran (resolved with reglan) and urinary retention relieved with straight cath and 24 hour additional hospital stay with webber (total days of admission 3). Denies chest pain with and without activity, ability to walk 1.5 miles +, recent illness, fever, vitamin/supplement use, shortness of breath, dysuria, constipation and diarrhea. PMH: PMH of HTN, BPH, Hyperlipidemia, hyperglycemia, osteoarthritis of hip, abnormal EKG and obesity (BMI 30-39) As per PMD, Dr Mahan, he has a long hx of abnormal EKG w/history of cardiac cath in 2007, echo wnl 2018 - no significant change in EKG. -EKG (09/21/18) -CXR (09/22/18) -ECHO (11/12/17) -CMP, CBC, PT/PTT, UA, HgA1C (01/03/19) PSH: Bowel surgery as an ; Left knee meniscus tear surgery; Left total knee replacement (Sep 2018) SH: Occasional Alcohol; Never smoked; No illegal drug use; Works as a Registered Nurse; Live with family FH: States: No known family hx Allergies: NKDA Medication: Reviewed Present on Admission - Present on Admission Any Indicators Present on Admission: No History of DVT/PE: No History of Uncontrolled Diabetes: No Review of Systems - Constitutional Constitutional: absent: Fatigue, Fever - Cardiovascular Cardiovascular: absent: Chest Pain, Chest Pain at Rest, Chest Pain with Activity, Claudication, Dyspnea, Pain Radiating to Arm/Neck/Jaw - Respiratory Respiratory: absent: Dyspnea - Genitourinary Genitourinary: As Per HPI. absent: Dysuria, Urinary Incontinence, Urinary Frequency, Urinary Hesitance, Urinary Urgency, Voiding Freq/Small Amts - Psychiatric Psychiatric: absent: Anxiety, Depression - Hematologic/Lymphatic Hematologic: absent: Easy Bleeding, Easy Bruising Past Patient History - Past Medical History & Family History Past Medical History?: Yes - Past Social History Smoking Status: Never Smoked - CARDIAC Hx Cardiac Disorders: Yes Hx Hypercholesterolemia: Yes Hx Hypertension: Yes Other/Comment: hx of cardiac cath due to abnormal EKG (-) - PULMONARY Hx Respiratory Disorders: No - NEUROLOGICAL Hx Neurological Disorder: No - HEENT Hx HEENT Problems: No - RENAL Hx Chronic Kidney Disease: No - ENDOCRINE/METABOLIC Hx Endocrine Disorders: No - HEMATOLOGICAL/ONCOLOGICAL Hx Blood Disorders: No Hx Anemia: No Hx Blood Transfusions: No Other/Comment: Thalassemia - INTEGUMENTARY Hx Dermatological Problems: No - MUSCULOSKELETAL/RHEUMATOLOGICAL Hx Musculoskeletal Disorders: No Hx Falls: No Hx Osteoarthritis: Yes (hips,knees) - GASTROINTESTINAL Hx Gastrointestinal Disorders: No - GENITOURINARY/GYNECOLOGICAL Hx Genitourinary Disorders: No - PSYCHIATRIC Hx Emotional Abuse: No Hx Physical Abuse: No - SURGICAL HISTORY Hx Surgeries: Yes Hx Arthroscopy: Yes (left knee meniscus -2015) Other/Comment: LEFT HIP TOTAL [id number] - ANESTHESIA Hx Anesthesia: Yes Hx Anesthesia Reactions: Yes (URINARY RETENTION AFTER SPINAL ANESTHESIA) Hx Malignant Hyperthermia: No Has any member of the family had a problem w/ anesthesia?: No Meds Allergies/Adverse Reactions: Allergies Allergy/AdvReac Type Severity Reaction Status Date / Time No Known Allergies Allergy Verified 01/18/19 06:33 Physical Exam - Constitutional Appears: Well, Non-toxic, No Acute Distress - Head Exam Head Exam: NORMAL INSPECTION - ENT Exam ENT Exam: Mucous Membranes Moist - Respiratory Exam Respiratory Exam: NORMAL BREATHING PATTERN. absent: Respiratory Distress - Cardiovascular Exam Cardiovascular Exam: REGULAR RHYTHM - GI/Abdominal Exam GI & Abdominal Exam: Normal Bowel Sounds. absent: Tenderness - Extremities Exam Extremities exam: Positive for: normal inspection - Neurological Exam Neurological exam: Alert, Oriented x3 Results - Vital Signs Recent Vital Signs: Last Vital Signs Temp 98.7 F 01/18/19 06:43 Pulse 73 01/18/19 06:49 Resp 18 01/18/19 06:43 BP 107/76 01/18/19 06:43 Pulse Ox 97 01/18/19 06:43 Assessment & Plan - Assessment and Plan (Free Text) Assessment: 63-year-old with PMH of HTN, BPH, Hyperlipidemia, hyperglycemia, osteoarthritis of hip, abnormal EKG and obesity (BMI 30-39). Evaluated in SDS with complaints of painful left hip that has failed conservative treatment of physical therapy, intra-articular injections and analgesics. Presents for total right hip replacement with Dr Garcia. METS > 4, medically optimized and cleared as low-risk for an intermediate risk surgery. Plan: Osteoarthritis of the right hip - Consult Dr Gomez orthopedist - Orthopedic management - Pain management - OT/PT - Pain management PRN HTN - Restart after surgery: Losartan 50mg PO daily Amlodapine 5mg PO Daily HLD - Lipitor 10mg Post surgery DVT Prophylaxis with SCD - Anticoagulation therapy starting day after surgery Code Status: Full
[2019-01-18] MEDS ORDERED: Lactated Ringer's 1,000 ML IV ONE ×3 (07:19→14:55)
[2019-01-18] MEDS ORDERED: Succinylcholine Chloride 20 mg/ml Syr (5 ml) IV ONE (07:32)
[2019-01-18] MEDS ORDERED: Midazolam 2 MG/2 ML VIAL ONE (07:32)
[2019-01-18] MEDS ORDERED: Etomidate 20 mg/10ml Inj IV ONE (07:37)
[2019-01-18] MEDS ORDERED: Phenylephrine 10 mg/ml Inj ONE (07:55)
[2019-01-18] MEDS ORDERED: Propofol 10 mg/ml Inj (20 ML) ONE (07:55)
[2019-01-18] MEDS ORDERED: Tranexamic Acid 1,000 MG in Sodium Chloride 0.9% 100 ML IVPB ONE (07:56)
[2019-01-18] MEDS ORDERED: Morphine 1 mg/ml preservative-free Inj(Duramorph) ONE (08:03)
[2019-01-18] MEDS ORDERED: Rocuronium 10 mg/ml (5 ml) ONE ×3 (08:26→10:15)
[2019-01-18] MEDS ORDERED: Dexamethasone 4 mg/1 ml ONE ×2 (08:53→10:06)
[2019-01-18] MEDS ORDERED: ePHEDrine 50 mg/ml Inj ONE ×2 (09:03→12:25)
[2019-01-18] MEDS ORDERED: Bacitracin OINT 15GM TOP ONE (09:47)
[2019-01-18] MEDS ORDERED: Thrombin Topical 5,000 Int Units Spray Kit TOP ONE (09:48)
[2019-01-18] MEDS ORDERED: Absorbable Gelatin Sponge Size 100 TP ONE (09:48)
[2019-01-18] MEDS ORDERED: EPINEPHrine 1 mg/ml (1:1000) Inj IV ONE (10:00)
[2019-01-18] MEDS ORDERED: Neostigmine 1:1000 (1 mg/ml) Inj ONE (10:05)
[2019-01-18] MEDS ORDERED: Esmolol 100 mg/10ml Inj IV ONE (11:44)
[2019-01-18] MEDS ORDERED: HYDROmorphone 0.5 mg/0.5 ml ISec IVP PRN (12:13)
--- NOTE | 2019-01-18 12:15 | PCM.SURG1 ---
Surgeon's Initial Post Op Note - Surgeon's Notes Surgeon: Jason [employer] Insurance Agent: VIANEY Peraza/ Maldonado Caceres PA-C 2nd assist Type of Anesthesia: General Endo, Spinal Anesthesia Administered By: DR Uzma Perkins Pre-Operative Diagnosis: Severe Osteoarthritis R hip Operative Findings: as above. Leg length inequality Post-Operative Diagnosis: as above Operation Performed: R THR- anterior ap[proach. femoral neck osteotomy. arthrotomy/synovectomy. release iliopsoas tendopn. allograft bone graft. comp-uter navigation Specimen/Specimens Removed: bone cartilage synovium Estimated Blood Loss: EBL {In ML}: 175 Blood Products Given: N/A Drains Used: No Drains Post-Op Condition: Fair Date of Surgery/Procedure: 01/18/19 Time of Surgery/Procedure: 09:20 (time ikn room/anaetsheisa induction time 921)
[2019-01-18] MEDS: ePHEDrine 50 mg/ml Inj IV PRN ×3 (12:25→13:35)
[2019-01-18] MEDS ORDERED: Lactated Ringer's 500 ML IV SCH (12:45)
[2019-01-18] MEDS: Naloxone 0.4 mg/ml Inj (Adult) ONE ×2 (14:30→16:10)
[2019-01-18] MEDS ORDERED: Sodium Chloride 0.9% 1,000 ML IV SCH (15:00)
[2019-01-18 16:08] LABS: MEAN CELL VOLUME 84.4 fl (80.0-94.0); MEAN CORPUSCULAR HEMOGLOBIN 27.1 pg (27.0-31.0); MEAN CORPUSCULAR HGB CONC 32.1 g/dL (33.0-37.0); RBC 4.04 Mil/uL (4.40-5.90); RED CELL DISTRIBUTION WIDTH 15.3 % (11.5-14.5); WHITE BLOOD COUNT 11.2 K/uL (4.8-10.8)
--- NOTE | 2019-01-18 16:28 | RAD ---
PROCEDURE: Right Hip Radiographs. HISTORY: s/p R OLGA LIDIA COMPARISON: 10/06/2018. TECHNIQUE: 2 views obtained. FINDINGS: BONES: The pelvic ring is intact. There is no acute displaced fracture or bone destruction. Bone alignment is normal. JOINTS: Status post total right hip arthroplasty. There is redemonstration of left hip arthroplasty. SOFT TISSUES: The expected postoperative changes in the right-sided periarticular soft tissues. OTHER FINDINGS: None. IMPRESSION: No acute displaced fracture or dislocation. Status post right hip arthroplasty, expected postoperative changes in the periarticular soft tissues. No acute complications.
[2019-01-18] MEDS: ceFAZolin 2 GM in Sodium Chloride 0.9% 100 ML IVPB SCH (17:02)
--- NOTE | 2019-01-18 17:12 | RAD ---
Date of service: 01/18/2019 PROCEDURE: Greater than 1 hour for fluoroscopy HISTORY: RIGHT HIP COMPARISON: None TECHNIQUE: Standard protocol for this study/examination. FINDINGS: Total fluoroscopic time (continuous mode) utilized during the procedure 18.7 seconds. Total exam DLP: 3.00 (mGy). IMPRESSION: In excess of 1 hr fluoroscopic assistance provided during performance of the procedure.
[2019-01-18 17:39] LABS: BLOOD UREA NITROGEN 17 mg/dl (9-20); CALCIUM 9.1 mg/dL (8.4-10.2); GFR NON-AFRICAN AMERICAN > 60
[2019-01-18] MEDS: Sodium Chloride 0.9% 1,000 ML IV SCH (18:35)
[2019-01-18 20:46] VITALS: RESP 20
[2019-01-19] MEDS: Sodium Chloride 0.9% 1,000 ML IV SCH (01:50)
[2019-01-19] MEDS: ceFAZolin 2 GM in Sodium Chloride 0.9% 100 ML IVPB SCH (01:50)
[2019-01-19] MEDS: Oxycodone/Acetaminophen 5/325 mg Tab PO PRN ×2 (02:06→09:47)
[2019-01-19 05:53] LABS: HEMOGLOBIN 9.4 g/dL (12.0-18.0); MEAN CELL VOLUME 84.4 fl (80.0-94.0); MEAN CORPUSCULAR HEMOGLOBIN 27.7 pg (27.0-31.0); MEAN CORPUSCULAR HGB CONC 32.8 g/dL (33.0-37.0); RBC 3.4 Mil/uL (4.40-5.90); RED CELL DISTRIBUTION WIDTH 15.3 % (11.5-14.5); WHITE BLOOD COUNT 9.3 K/uL (4.8-10.8)
[2019-01-19 06:30] LABS: BLOOD UREA NITROGEN 16 mg/dl (9-20); CALCIUM 8.4 mg/dL (8.4-10.2); GFR NON-AFRICAN AMERICAN > 60
[2019-01-19 08:28] VITALS: O2SAT 100
--- NOTE | 2019-01-19 09:18 | CP.PCM.PN ---
Subjective - Date & Time of Evaluation Date of Evaluation: 01/19/19 Time of Evaluation: 07:30 - Subjective Subjective: Patient seen and examined OOB to chair. Minimal R hip pain at this time. Able to void without issues at this time. Denies CP/SOB/fever/dizziness. Objective - Vital Signs/Intake and Output Vital Signs (last 24 hours): Temp Pulse Resp BP Pulse Ox 98.3 F 80 20 97/65 L 100 01/19/19 08:27 01/19/19 08:27 01/19/19 08:27 01/19/19 08:27 01/19/19 08:27 - Medications Medications: Current Medications Acetaminophen (Tylenol 325mg Tab) 650 mg PO Q4 PRN PRN Reason: Fever 101 degrees fahrenheit Enoxaparin Sodium (Lovenox) 40 mg SC DAILY COUNT INCLUDES THE [facility]; Protocol Ephedrine (Ephedrine) 5 mg IV PRN PRN PRN Reason: HYPOTENSION Last Admin: 01/18/19 13:35 Dose: 5 mg Ferrous Sulfate (Feosol) 325 mg PO BID COUNT INCLUDES THE [facility] Last Admin: 01/18/19 19:08 Dose: 325 mg Folic Acid (Folic Acid) 1 mg PO DAILY COUNT INCLUDES THE [facility] Lactated Ringer's (Lactated Ringer's 500ml) 500 mls @ 999 mls/hr IV .Q31M COUNT INCLUDES THE [facility] Sodium Chloride (Sodium Chloride 0.9%) 1,000 mls @ 150 mls/hr IV .Q6H40M COUNT INCLUDES THE [facility] Stop: 01/19/19 14:50 Last Admin: 01/19/19 01:50 Dose: 150 mls/hr Morphine Sulfate (Morphine) 2 mg IVP Q4 PRN PRN Reason: Pain, severe (8-10) Ondansetron HCl (Zofran Inj) 4 mg IVP Q4 PRN PRN Reason: Nausea/Vomiting Last Admin: 01/18/19 18:34 Dose: 4 mg Oxycodone/Acetaminophen (Percocet 5/325 Mg Tab) 2 tab PO Q4 PRN PRN Reason: Pain, moderate (4-7) Stop: 01/21/19 12:15 Last Admin: 01/19/19 02:06 Dose: 2 tab - Labs Labs: 01/19/19 05:05 01/19/19 05:05 - Extremities Exam Additional comments: R hip: Dressings CDI mild thigh swelling sensation intact SP/DP/TN motor intact EHL/FHL/TA/G pedal pulse intact calves soft NT Assessment and Plan (1) Osteoarthritis of right hip Assessment & Plan: POD#1 s/p R OLGA LIDIA -PT/OT FWB -DVT ppx, Lovenox 40 mg daily x 2 weeks -orthopedically stable for d/c to home -f/u in office within 7-10 days -d/w Dr. Gomez who agrees with above Status: Acute
[2019-01-19] MEDS: Enoxaparin 40 mg Syringe SC SCH ×2 (09:26→09:49)
--- NOTE | 2019-01-19 12:00 | CP.PCM.DIS ---
<Ruth Curtis - Last Filed: 01/19/19 12:06> Provider - Provider Date of Admission: 01/18/19 17:00 Attending physician: Alka Husain MD Consults: 01/18/19 08:05 Orthopedic Consult Routine Comment: Consulting Provider: Graham Gomez III Consulting Physician: Graham Gomez III Reason for Consult: Right Hip Primary OA for THR 01/18/19 12:14 Case Management Referral Routine Comment: Physician Instructions: Reason For Exam: Reason for Referral: Discharge Planning Time Spent in preparation of Discharge (in minutes): 20 Hospital Course - Lab Results Lab Results: Most Recent Lab Values WBC 9.3 K/uL (4.8-10.8) 01/19/19 05:05 RBC 3.40 Mil/uL (4.40-5.90) L 01/19/19 05:05 Hgb 9.4 g/dL (12.0-18.0) L 01/19/19 05:05 Hct 28.7 % (35.0-51.0) L 01/19/19 05:05 MCV 84.4 fl (80.0-94.0) 01/19/19 05:05 MCH 27.7 pg (27.0-31.0) 01/19/19 05:05 MCHC 32.8 g/dL (33.0-37.0) L 01/19/19 05:05 RDW 15.3 % (11.5-14.5) H 01/19/19 05:05 Plt Count 154 K/uL (130-400) 01/19/19 05:05 Sodium 135 mmol/l (132-148) 01/19/19 05:05 Potassium 4.4 MMOL/L (3.6-5.0) 01/19/19 05:05 Chloride 105 mmol/L (98-107) 01/19/19 05:05 Carbon Dioxide 23 mmol/L (22-30) 01/19/19 05:05 Anion Gap 11 (10-20) 01/19/19 05:05 BUN 16 mg/dl (9-20) 01/19/19 05:05 Creatinine 0.7 mg/dl (0.8-1.5) L 01/19/19 05:05 Est GFR ( Amer) > 60 01/19/19 05:05 Est GFR (Non-Af Amer) > 60 01/19/19 05:05 POC Glucose (mg/dL) 139 mg/dL (65-110) H 01/18/19 14:00 Random Glucose 137 mg/dL (75-110) H 01/19/19 05:05 Calcium 8.4 mg/dL (8.4-10.2) 01/19/19 05:05 Albumin 3.5 g/dL (3.5-5.0) 01/18/19 16:59 Blood Type B POSITIVE 01/18/19 06:25 Antibody Screen Negative 01/18/19 06:25 Crossmatch See Detail 01/18/19 06:25 BBK History Checked Patient has bt 01/18/19 06:25 - Hospital Course Hospital Course: 63-year-old male admitted for total right hip replacement. Tolerated procedure well, became hypotensive post-op but BP normalized. Voiding freely, ambulating and tolerating PO without difficulty. Denies CP, SOB, N/V/D/C. As per surgery: PT/OT FWB, DVT ppx, Lovenox 40 mg daily x 2 weeks, orthopedically stable for d/c to home, f/u in office within 7-10 days. Discharge Exam - Head Exam Head Exam: ATRAUMATIC, NORMOCEPHALIC - Cardiovascular Exam Cardiovascular Exam: REGULAR RHYTHM - GI/Abdominal Exam GI & Abdominal Exam: Soft. absent: Tenderness - Extremities Exam Additional comments: dressing C/D/I - Neurological Exam Neurological exam: Alert, Oriented x3 - Psychiatric Exam Psychiatric exam: Normal Affect, Normal Mood - Skin Skin Exam: Normal Color Discharge Plan - Discharge Medications Prescriptions: amLODIPine [Norvasc] 5 mg PO DAILY #30 tab Cholecalciferol (Vitamin D3) [Vitamin D3] 1,000 unit PO DAILY 30 Days tab.chew Enoxaparin [Lovenox] 40 mg SQ DAILY 14 Days #14 syr Ferrous Sulfate/Vit C/Folic AC [Folitab 500 Caplet] 1 each PO DAILY #15 tablet.er Losartan Potassium 50 mg PO DAILY #30 tablet Magnesium 200 mg PO DAILY #30 tablet oxyCODONE/Acetaminophen [Percocet 5/325 mg Tab] 1 tab PO Q4 PRN #20 tab PRN Reason: Pain, Moderate (4-7) Rosuvastatin Calcium [Crestor] 10 mg PO DAILY #30 tablet Tamsulosin [Flomax] 0.4 mg PO DAILY #7 cap Ubidecarenone [Coq-10] 200 mg PO DAILY #30 capsule - Follow Up Plan Condition: GOOD Disposition: HOME/ ROUTINE Instructions: Total Hip Replacement (DC) Additional Instructions: Do not remove dressing,keep it dry and clean follow up with in 2 weeks Referrals: Graham Gomez III, MD [Staff Provider] - Jessika Mahan MD [Family Provider] - <Felicitas Castillo - Last Filed: 01/21/19 15:58> Provider - Provider Date of Admission: 01/18/19 17:00 Attending physician: Alka Husain MD Consults: 01/18/19 08:05 Orthopedic Consult Routine Comment: Consulting Provider: Graham Gomez III Consulting Physician: Graham Gomez III Reason for Consult: Right Hip Primary OA for THR 01/18/19 12:14 Case Management Referral Routine Comment: Physician Instructions: Reason For Exam: Reason for Referral: Discharge Planning Hospital Course - Lab Results Lab Results: Most Recent Lab Values WBC 9.3 K/uL (4.8-10.8) 01/19/19 05:05 RBC 3.40 Mil/uL (4.40-5.90) L 01/19/19 05:05 Hgb 9.4 g/dL (12.0-18.0) L 01/19/19 05:05 Hct 28.7 % (35.0-51.0) L 01/19/19 05:05 MCV 84.4 fl (80.0-94.0) 01/19/19 05:05 MCH 27.7 pg (27.0-31.0) 01/19/19 05:05 MCHC 32.8 g/dL (33.0-37.0) L 01/19/19 05:05 RDW 15.3 % (11.5-14.5) H 01/19/19 05:05 Plt Count 154 K/uL (130-400) 01/19/19 05:05 Sodium 135 mmol/l (132-148) 01/19/19 05:05 Potassium 4.4 MMOL/L (3.6-5.0) 01/19/19 05:05 Chloride 105 mmol/L (98-107) 01/19/19 05:05 Carbon Dioxide 23 mmol/L (22-30) 01/19/19 05:05 Anion Gap 11 (10-20) 01/19/19 05:05 BUN 16 mg/dl (9-20) 01/19/19 05:05 Creatinine 0.7 mg/dl (0.8-1.5) L 01/19/19 05:05 Est GFR ( Amer) > 60 01/19/19 05:05 Est GFR (Non-Af Amer) > 60 01/19/19 05:05 POC Glucose (mg/dL) 139 mg/dL (65-110) H 01/18/19 14:00 Random Glucose 137 mg/dL (75-110) H 01/19/19 05:05 Calcium 8.4 mg/dL (8.4-10.2) 01/19/19 05:05 Albumin 3.5 g/dL (3.5-5.0) 01/18/19 16:59 Blood Type B POSITIVE 01/18/19 06:25 Antibody Screen Negative 01/18/19 06:25 Crossmatch See Detail 01/18/19 06:25 BBK History Checked Patient has bt 01/18/19 06:25 Attending/Attestation - Attestation I have personally seen and examined this patient.: Yes I have fully participated in the care of the patient.: Yes I have reviewed all pertinent clinical information, including history, physical exam and plan: Yes Notes (Text): 01/21/19 15:57 63-year-old male status post right total hip with Dr. Gomez, doing very well. Stable for discharge, agree with findings and plan as above.
[2019-01-19 12:11] VITALS: BP 99/63; PULSE 89; TEMP 98.8
--- NOTE | 2019-01-19 22:46 | OP ---
PROCEDURE DATE: 01/18/2019 PREOPERATIVE DIAGNOSES: 1. Severe osteoarthritis of the right hip. 2. Leg length inequality. POSTOPERATIVE DIAGNOSES: 1. Severe osteoarthritis of the right hip. 2. 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 3. Synovitis of the right hip. 4. The aforementioned leg length inequality, right less than left. SURGEON: Graham Gomez MD. BUSINESS INFORMATION CONSULTANT: Mirian Pinto, certified registered nursing first front ventilator. SECOND HOTEL MAID: Eze Caceres PA-C. ANESTHESIA: General endotracheal anesthesia, spinal anesthesia. ANESTHESIOLOGIST: Ankit Perkins MD. OPERATION PERFORMED: 1. Right total hip replacement, anterior approach. 2. Femoral neck osteotomy (this is given a separate code because of the fact that the patient had extensive leg length inequality preoperatively. Preoperative planning and computer navigation were employed to obtain equal leg lengths). 3. Arthrotomy of the hip and synovectomy. 4. Release of iliopsoas tendon. 5. Autograft bone graft. 6. Computer navigation. SPECIMENS REMOVED: Bone, cartilage, and synovium. BLOOD LOSS: 175 mL. No blood products given. DRAINS: No drains. POSTOPERATIVE CONDITION: Stable. TIME OF SURGERY: 9:20, time in the room. Anesthesia induction time, 8:21. OPERATIVE INDICATION: Jeffery Candelario is a 63-year-old gentleman, who is employed by [employer]. The patient presents after successful left total hip replacement arthroplasty several months ago. The patient now presents with pain, restricted range of motion of the right hip, and wants the right hip to be replaced. The problem of leg length inequality was discussed at length with the patient. The possibility of mechanical failure, infection, thromboembolic disease, possibility of secondary or tertiary surgery was discussed. The patient can no longer stand the discomfort and wished the surgery accomplished, the concept that extensive preoperative planning is accomplished, intraoperative measurement using both image intensification views and computer navigation demand that the femoral neck osteotomy be a separate procedure within the operation performed. OPERATIVE PROCEDURE: After having obtained informed consent in the above fashion, after having identified side, site, and procedure, and a critical pause/time-out after the satisfactory induction of the anesthetic, the patient identified as Jeffery Candelario, is placed in the supine position in the AMIS traction position with all bony prominences well padded. After the satisfactory induction of spinal and general anesthesia by Dr. Perkins, after having identified side, site, and procedure and a critical pause/time-out after the satisfactory induction of the anesthetic, the patient identified as Jeffery Candelario in the supine position with all bony prominences well-padded. The AMIS traction positioner was employed, and again under the surgeon's direction, the fluoroscope was positioned, video images were generated, therapeutic decisions were made therefrom. After having obtained informed consent, after having identified the side, site, and procedure, and the critical pause/time-out, after the satisfactory induction of the anesthetic, the patient identified as Jeffery Candelario in the supine position using the AMIS traction positioner. The right hip was prepped and free draped in the usual fashion for lower extremity hip replacement surgery by the anterior approach. Topographic anatomy was marked. The anterior superior iliac spine three fingerbreadths posterior to the ASIS, one fingerbreadth distal and four fingerbreadths distal to that. The incision is described three fingerbreadths posterior to the ASIS, superficial to the tensor fascia isabella muscle. Skin incision is carried down after sterilely prepping and draping, after having identified side, site, and procedure and a critical pause/time-out, after intraoperative planning for the femoral neck osteotomy was accomplished, on x-ray and preoperatively on image intensification and intraoperatively on image intensification views. The skin incision was carried down through the skin and subcutaneous tissue. The fascia was identified and the fascia superficial to the tensor fascia isabella is carefully incised. The muscle is taken down from the investing fascia and the modified Adson-Franchesca Medacta retractor is placed. The posterior aspect of the rectus femoris is identified. Hemostasis is controlled with the Aquamantys and that muscle belly is elevated. Then the Medacta modified Adson-Franchesca retractor was placed deeper. At this point in time, the fascia superficial to the hip capsule is identified. The fascia is carefully divided. The anterior branch of the lateral femoral circumflex vessels were identified and the vessels are controlled using the Aquamantys. Great care was taken to control the vessels and this having been accomplished with the AMIS traction internally rotating the lower extremity. The capsulotomy is initiated at the lateral aspect of the acetabulum medially to the branch of the iliocapsularis muscle. This is brought down distally to the intertrochanteric line. This is elevated. The modified Medacta Hohmann retractor is placed medially. There is found to be extensive contractures. There are fat pads superficial to the capsule, these were excised. At this point in time, the capsule is elevated and tagged and an episiotomy is accomplished proximally in the area of the lateral aspect of the acetabulum in the supine position. This having been accomplished, the capsular flap is tagged and the Ray-Alysha soaked in epinephrine infuse solution is placed into the joint and at this point in time, the intraoperative measurement of the femoral neck osteotomy is accomplished. Again preoperative planning had been accomplished as well as intraoperative planning and the femoral neck is osteotomized. This having been accomplished, the head is and with few turns of traction and external rotation, the head is displaced and the cortical screw was introduced into the head. This having been accomplished with five turns, the head is removed and measured to be 47 mm. This having been accomplished, the Charnley retractor is placed deep. Prior to placement of the Charnley retractor, computer navigation commences. Two stab wounds were accomplished according to template, one fingerbreadth posterior to the tip of the ASIS. This having been accomplished, the pins were introduced and they are drilled. This having been accomplished, the computer navigation commences with the [employer] accelerometer camera. This is placed at this point in time and the anterior aspect of the pelvis is registered and the left ASIS is registered and the right ASIS is registered after registration of the device. This having been accomplished, the camera is removed. The Charnley retractor is placed deep and at this point in time, the reflected head of rectus femoris is carefully elevated from the acetabulum and this having been accomplished, the Medacta retractor is placed as well. Arthrotomy and synovectomy is accomplished with the pulvinar having been controlled using the Aquamantys. The pulvinar is removed. Sequential reaming is carried out from 47 mm through to 54 mm. At this point in time, reaming commences both medially and in attitude of approximately 40-45 degrees of abduction and approximately 15-20 degrees of anteversion. This having been accomplished, reaming is carried out with the dog-leg reamer and the reaming were from the articular cartilage for bone grafting later. The camera accelerometer is placed and at this point in time the straight reamer is introduced and the registration of the camera is carried out. This having been accomplished, the sensor is placed on the straight reamer and the final reaming is accomplished at approximately 42 degrees of abduction and 20 degrees of anteversion. The bur is used for the cartilage on the posterior aspect of the acetabulum to make sure that there is no inequality in reaming. Final reaming commences. The 54 mm Medacta cup is impacted at approximately 42 degrees of abduction and 21 degrees of anteversion. This having been accomplished, the cup is found to be secure. At this point in time, with the pelvic lift test is accomplished and the cup is certainly secured as the pelvis moves as a unit, with external rotation of the femur, at this point in time, the pubofemoral ligament is identified and it is carefully released. There is found to be a marked iliopsoas tendon contracture and the iliopsoas tendon is released using electrocautery under direct vision. This having been accomplished, the trochanteric fossa is identified and with further external rotation, the capsule in that region is released and carefully elevated. Hemostasis is controlled with the Aquamantys. At this point in time, the iliofemoral ligament is identified and divided with further external rotation of the femur. The capsular flip is accomplished and the proximal femur is delivered into the wound with approximately 155 degrees of external rotation and extension of the femur. Abduction delivers the head into the wound, bridge of bone between the neck and the trochanter which is exposed, is removed with the box chisel. The bur is used to enter the canal and also to smooth the entry into the canal for the rasp. The rasp is introduced and is buried successfully. There is no evidence of protrusion and at this point in time, sequential broaching is carried out to a #3 femoral component. This having been accomplished and again with an eye to leg length, the computer navigation having controlled the position of the cup as we discussed earlier, the computer navigation also after the introduction of the cup, defined the cup position at approximately 42 degrees of abduction and 20 degrees of anteversion and verification of position is offered on image intensification and the cup is to the teardrop and this is taken into consideration and planning of the leg lengths. This having been accomplished with the appropriate osteotomy, the femoral neck left tall, sequential broaching to a #3 broach +3.5. Head is accomplished with a standard neck. The hip is reduced and is found to be stable in all planes. This having been accomplished, it should be noted that autograft bone grafting had been accomplished to the acetabulum with the reamings denuded of articular cartilage. Similarly autograft bone grafting to the femur is accomplished as well. The hip having been found to be stable with the broach and trialing having been stable, the definitive stem is introduced, # 3 collarless with a +3.5 ceramic head and the 54-mm outer bearing. The hip is reduced and found to be stable in all planes. Autograft bone grafting is carried out to the proximal femur. The computer navigation supporting pins are removed. The wound is thoroughly irrigated. Thorough irrigation of the wound commences and FloSeal is introduced as the hemostatic agent as well as thrombin and Gelfoam. The fascia is closed using 0 Quill, followed by 0 Vicryl, 2-0 Vicryl, and 2-0 Quill plastic closure. The incisions for the computer navigation are closed with interrupted Vicryl and nylon. Compression dressing is applied, verification of position is offered on image intensification views. OPERATIVE PROCEDURES: 1. Right total hip replacement anterior approach. 2. Femoral neck osteotomy with computer navigation and intraoperative planning and preoperatively extensive planning. 3. Arthrotomy, synovectomy as discussed. 4. Release of the iliopsoas tendon. 5. Autograft, bone grafting to both the femur and the acetabulum. 6. Computer navigation. The assistants were necessary to the completion of the operative goal. Again the femoral neck osteotomy is included as a separate code because of the complexity to attain leg lengths. Postoperative check of leg lengths in recovery find that the leg lengths are essentially equal postoperatively. Graham Gomez MD
--- NOTE | 2019-01-21 10:24 | PQF ---
Urinary Retention likely due to Anesthesia PROVIDER RESPONSE TEXT: Pt had post-op urinary retention at time when initial post-op void was due. Straight cath was done to remove urine. Pt began to void freely without any issues thereafter. REVIEWER QUERY TEXT: Documentation Clarification Your help is requested in clarifying the following clinical documentation, if you can please further specify in the medical record and discharge summary. Would you please clarify if there is an associated diagnosis or not to go along with the following documentation: Nursing notes with following documentation: 01/18/19: Due to void @ 20:15. 2015- Pt has not voided. Resident, Dr. Boyle called and made aware. Orders made for bladder scan whenever available. 2130 - Bladder scan performed. [address] Boyle aware, Orders for straight cath made and carried out. 2150 - 680cc, of light kelly urine during straight cath. made aware, The patient's Clinical Indicators include: Order : Straight Catheterization Query created by: Maria C Ramírez on 01/19/2019 1:06 PM Electronically signed by: Ruth Curtis 01/21/2019 10:21 AM [facility]
--- NOTE | 2019-01-24 18:22 | PQF ---
PROVIDER RESPONSE TEXT: OA Right Hip s/p Right THR REVIEWER QUERY TEXT: Conflicting Documentation Clarification Please clarify the laterality of the OA. Ortho PA: OA Right hip OR: R THR A single mention or documentation of multiple sites for the same clinical presentation appears in the record. Please clarify the site of the OA The patient's Clinical Indicators include: Ortho PA: OA Right hip OR: R THR Query created by: Maria C Ramírez on 01/23/2019 6:35 AM Electronically signed by: Alka Husain MD 01/24/2019 6:19 PM
== END 2019-01-19 15:11 | disposition home or self-care (01) | DRG 470 ==
LOC: H.OPSURG 06:09 → H.TEL 17:00
PROVIDERS: ADMIT Internal Medicine; ATTEND Internal Medicine
PROC: 0SB90ZZ Excision of Right Hip Joint, Open Approach (ICD-10-PCS; 2019-01-18)
PROC: 0SN90ZZ Release Right Hip Joint, Open Approach (ICD-10-PCS; 2019-01-18)
PROC: 8E0YXBZ Computer Assisted Procedure of Lower Extremity (ICD-10-PCS; 2019-01-18)
PROC: 0SR903A Replacement of Right Hip Joint with Ceramic Synthetic Substitute, Uncemented, Open Approach (ICD-10-PCS; principal; 2019-01-18 07:45)
DX: M16.11 Unilateral primary osteoarthritis, right hip (principal); I10 Essential (primary) hypertension; N40.0 Benign prostatic hyperplasia without lower urinary tract symptoms; E78.5 Hyperlipidemia, unspecified; R73.9 Hyperglycemia, unspecified; E66.9 Obesity, unspecified; Z68.30 Body mass index [BMI] 30.0-30.9, adult; Z96.652 Presence of left artificial knee joint; D56.9 Thalassemia, unspecified; Z96.642 Presence of left artificial hip joint; M21.751 Unequal limb length (acquired), right femur; M65.9 Synovitis and tenosynovitis, unspecified; G89.29 Other chronic pain; M24.551 Contracture, right hip; I95.81 Postprocedural hypotension; E78.00 Pure hypercholesterolemia, unspecified; N99.89 Other postprocedural complications and disorders of genitourinary system; R33.8 Other retention of urine